=== PATIENT | female | born 1970 | race Caucasian/White ===

== ENCOUNTER 2018-05-29 08:43 | Day surgery (SDC) | payer OTHER ==
[~2018-05-29] VITALS: Ht 152.4 cm; Wt 69.9 kg
[~2018-05-29 08:43] MED LIST: LEVOTHYROXINE75 MCG PO; METOPROLOL TART25 MG PO; NORVASC10 MG PO; ZANAFLEX4 MG PO; ZOLOFT100 MG PO
[2018-05-29 10:10] VITALS: BP 116/69; Ht 152.4 cm; Wt 69.9 kg
[2018-05-29 10:25] LABS: HEMATOCRIT 42.1 % (36.0-48.0); HEMOGLOBIN 14.6 g/dL (12-16); MCH 33.3 pg (26.0-34.0); MCHC 34.7 g/dL (31.0-37.0); MCV 95.9 fL (80.0-100.0); MEAN PLATELET VOLUME 11.4 fL (7.4-10.4); RBC 4.39 10x6/uL (4.00-5.40); RDW 12.9 % (11.5-14.5); WBC 12.3 10x3/uL (4.8-10.8)
--- NOTE | 2018-05-29 14:50 | NUR ---
REC'D FROM RR. FAMILY AT BEDSIDE. ICE WATER BROUGHT TO PATIENT.
--- NOTE | 2018-05-29 15:00 | NUR ---
DAVID HENAOAnnie BROUGHT TO PT. ASSISTED TO THE BATHROOM AND VOIDED WITHOUT DIFFICULTY. FAMILY AT BEDSIDE.
--- NOTE | 2018-05-29 15:50 | NUR ---
TOLERATED DIET. IV DC'D WITH CATHETER INTACT.
--- NOTE | 2018-05-29 16:05 | NUR ---
WRITTEN AND VERBAL DC INST. GIVEN TO PT ALONG WITH RX. VERBALIZED UNDERSTANDING.
--- NOTE | 2018-05-29 16:15 | NUR ---
DC'D HOME WITH FAMILY VIA PRIVATE VEHICLE. TAKEN TO VEHICLE VIA WC. STABLE AT TIME OF DC.
--- NOTE | 2018-06-03 17:31 | OP ---
PATIENT NAME: ADAM SHIRLEY MEDICAL RECORD: [id number] :68 LOCATION:D[facility] ED ADMISSION DATE: SURGEON: BRENT NICHOLS MD DATE OF OPERATION: 05/29/2018 PREOPERATIVE DIAGNOSES: 1. Internal hemorrhoidal bleeding. 2. Intractably symptomatic external hemorrhoids. 3. Third-degree prolapse of the anus. POSTOPERATIVE DIAGNOSES: 1. Internal hemorrhoidal bleeding. 2. Intractably symptomatic external hemorrhoids. 3. Third-degree prolapse of the anus. 4. Persistently prolapsed hemorrhoid at the 5 o'clock position after the procedure for prolapse and hemorrhoids. PROCEDURES: 1. Procedure for prolapse and hemorrhoids. 2. Single column hemorrhoidectomy with closure. SURGEON: Brent Nichols MD ONCOLOGY NURSE NAVIGATOR: None. BLOOD LOSS: 25 cc. ANESTHESIA: General. COMPLICATIONS: None. The risks, possible complications and alternatives to the procedure were explained to the patient. She elects to proceed. Discussion specifically included, but was not limited to, bleeding requiring an emergency reoperation, infection, anal stenosis, and fecal incontinence. OPERATIVE COURSE: The patient was conveyed to the operating room electively on 05/29/2018. General anesthesia was induced by the anesthesia staff. The patient was placed in the lithotomy position. The buttocks were taped laterally. The anus and perianal areas were sterilely prepped and draped. I dilated the anus laterally to 2 fingers. The PPH dilator retractor was then sewn and the retractor was sewn in place to the surrounding anoderm with 2-0 silks. A mucosal pursestring suture of 2-0 Prolene was applied 1 cm cephalad to the clear retractor. The PPH stapling device was advanced with the anvil cephalad to the pursestring suture, which was then tightened and tied. The stapling device was engaged. It was held in place for 2 minutes and then fired. Bleeding along the anastomotic staple line was controlled with a [id number] 3-0 Vicryls. There was still 1 prolapsed hemorrhoidal segment and this was at the 5 o'clock position. A 3-0 Vicryl suture was placed at the staple line at the apex of this prolapsed internal and external hemorrhoidal complex. With the Harmonic scalpel, I excised this hemorrhoidal column. I swept down the external sphincter as well as the internal sphincter and they were undamaged during the operation. I then closed the defect with the same 3-0 Vicryl suture in a OPERATIVE REPORT [id number] ADAM SHIRLEY running locking fashion for the anal mucosa and then in a running fashion out on to the anoderm. Gelfoam was applied within the anus and rectum. A combination of Marcaine and steroid preparation were used to infiltrate the perianal tissues. Americaine was applied to the external hemorrhoids. The patient was then extubated and conveyed to the post-anesthesia care unit where she was in stable condition. I want to plan for her to go home on Valium as well as [place] and Colace. I will see her in the office in 2-3 weeks. TRANSINT:[id number] Voice Confirmation ID: [id number] DOCUMENT ID: [id number] BRENT NICHOLS MD at 1731 CC: RON YOUNG [id number] DICTATION DATE: 05/29/18 1410 VICE PRESIDENT OF COMMUNICATIONS: 05/29/18 1431 [facility] 05/29/18 [facility] [address] [place] [address]
== END 2018-05-29 16:15 | disposition home or self-care (01) ==
LOC: D.OPS 08:43 → D.PAN 10:15 → D.OPS 10:30
PROVIDERS: Anesthesiology; ATTEND Surgery
DX: K64.2 Third degree hemorrhoids (principal); K64.4 Residual hemorrhoidal skin tags; Z01.812 Encounter for preprocedural laboratory examination

== ENCOUNTER → 2019-02-11 13:18 | Outpatient (CLI) | payer OTHER ==
[2018-05-29 10:10] VITALS: BMI 30.1
== END | disposition home or self-care (01) ==
LOC: D.HCCECHO 13:18
PROVIDERS: ATTEND Internal Medicine Cardiovascular Disease
DX: I10 Essential (primary) hypertension (principal)